=== PATIENT | female | born 1995 | race Caucasian/White ===

== ENCOUNTER 2018-05-16 20:37 | Emergency (ER) | payer OTHER ==
[~2018-05-16] VITALS: Ht 154.9 cm; Wt 70.3 kg
[2018-05-16 20:58] VITALS: BP 131/84; Ht 154.9 cm; Wt 70.3 kg
== END 2018-05-16 22:25 | disposition left against medical advice (07) ==
LOC: ED 20:37
DX: Z53.21 Procedure and treatment not carried out due to patient leaving prior to being seen by health care provider (principal)